=== PATIENT | male | born 1935 | race Caucasian/White ===

== ENCOUNTER 2018-05-17 16:15 | Inpatient (IN) ==
[2018-05-17] MEDS ORDERED: PIPERACILLIN/TAZOBACTAM 3,375 MG in SODIUM CHLORIDE 0.9% 100 ML IV STA ×2 (17:34→18:06)
[2018-05-17] MEDS ORDERED: PIPERACILLIN/TAZOBACTAM 3,375 MG VIAL IV ONE (18:04)
[2018-05-17] MEDS ORDERED: BENZOCAINE/MENTHOL LOZENGE 18/BOX PO PRN (22:22)
[2018-05-17] MEDS: DOCUSATE SODIUM 100 MG CAPSULE PO SCH (22:45)
[2018-05-17] MEDS: ONDANSETRON 4 MG/2 ML VIAL IV PRN (22:56)
[2018-05-17] MEDS: HYDROmorphone 2 MG/1 ML VIAL IV PRN (22:56)
[2018-05-18] MEDS: HYDROmorphone 2 MG/1 ML VIAL IV PRN ×3 (04:55→23:23)
[2018-05-18] MEDS: ONDANSETRON 4 MG/2 ML VIAL IV PRN (04:57)
[2018-05-18] MEDS ORDERED: INDOMETHACIN SUPP 50 MG SUPP RECTAL ONE (07:20)
[2018-05-18] MEDS ORDERED: LACTATED RINGERS 1,000 ML IV SCH (07:30)
[2018-05-18] MEDS ORDERED: MECLIZINE 25 MG TABLET PO PRN (07:44)
[2018-05-18] MEDS ORDERED: GLIMEPIRIDE 2 MG TABLET PO SCH (08:00)
[2018-05-18] MEDS ORDERED: SERTRALINE 50 MG TABLET PO SCH (09:00)
[2018-05-18] MEDS ORDERED: FUROSEMIDE 40 MG TABLET PO SCH (09:00)
[2018-05-18] MEDS ORDERED: INFLUENZA VIRUS VACCINE 0.5 ML SYRINGE IM ONE (09:00)
[2018-05-18 09:47] LABS: Basophils % 0.2 % (0.0-0.8); Hematocrit 34.4 VOL% (42.0-52.0); Hemoglobin 11.4 GM/DL (14.0-18.0); Immature Granulocytes % 0.7 %; Immature Granulocytes Absolute 0.15 #; Lymphocytes # 0.8 10*3/uL (1.4-4.0); Lymphocytes % 3.8 % (21.2-54.2); Mean Corpuscular HGB Conc 33.1 GM/DL (32-36); Mean Corpuscular Hemoglobin 31 PG (27-34); Mean Corpuscular Volume 94.5 FL (87-102); Monocytes # 0.7 10*3/uL (0.11-0.8); Monocytes % 3.6 % (1.7-12.7); Neutrophils # 18.9 10*3/uL (1.4-7.4); Neutrophils % 91.7 % (38.7-73.9); Platelet Count 168 T/CUMM (130-400); Red Blood Count 3.64 MC/CUMM (3.8-5.5); Red Cell Distribution Width 12.7 % (9.3-17.3); White Blood Count 20.6 T/CUMM (4-12)
[2018-05-18 09:57] LABS: INR 1.1; PT Patient Result 11.9 SECS
[2018-05-18 10:16] LABS: Band Neutrophils 6 % (0-10); Hypochromasia 1+; Lymphocytes 3 % (20-55); Platelet Estimate Normal; Segmented Neutrophils 90 % (50-85); Total Cells Counted 100
[2018-05-18 10:23] LABS: Albumin 2.8 G/DL (3.4-5.0); Bilirubin,Total 6.5 MG/DL (0.2-1.0); Calcium 8.5 MG/DL (8.5-10.1); Osmolality,Calculated 270.1 MOS/KG (273-304); Potassium 4.4 MMOL/L (3.5-5.1); Risk Ratio 3.62; Thyroid Stimulating Hormone 0.506 uIU/ml (0.358-3.74); Total Protein 6.4 G/DL (6.4-8.3)
[2018-05-18] MEDS: IPRATROPIUM 500 MCG/2.5 ML NEB RESP TX SCH ×3 (11:09→19:34)
[2018-05-18] MEDS ORDERED: fentaNYL 100 MCG/2 ML VIAL ONE ×2 (12:05→16:37)
[2018-05-18] MEDS ORDERED: MIDAZOLAM 2 MG/2 ML VIAL ONE ×2 (12:05→13:57)
[2018-05-18] MEDS ORDERED: EPINEPHrine 1 MG/ML VIAL ONE (13:26)
[2018-05-18] MEDS ORDERED: PHENYLEPHRINE DRIP 40 MG/250 ML PREMIX IV ONE (14:20)
[2018-05-18] MEDS ORDERED: ceFAZolin 1,000 MG VIAL ONE (14:25)
[2018-05-18] MEDS ORDERED: GLUCAGON 1 MG VIAL ONE (14:45)
[2018-05-18] MEDS ORDERED: PROPOFOL 1,000 MG/100 ML BOTTLE IV SCH (15:15)
[2018-05-18] MEDS ORDERED: ROCURONIUM 100 MG/10 ML VIAL IV ONE (15:19)
[2018-05-18] MEDS ORDERED: SUCCINYLCHOLINE 200 MG/10 ML VIAL ONE ×2 (15:19→20:11)
[2018-05-18] MEDS ORDERED: PHENYLEPHRINE 1 MG/10 ML SYRINGE IV ONE (15:19)
[2018-05-18] MEDS ORDERED: PROPOFOL 200 MG/20 ML VIAL IV ONE (15:19)
[2018-05-18] MEDS ORDERED: LIDOCAINE 100 MG/5 ML SYRINGE ONE (15:19)
[2018-05-18] MEDS ORDERED: PROPOFOL 1,000 MG/100 ML BOTTLE IV ONE (16:42)
[2018-05-18] MEDS: DOCUSATE SODIUM 100 MG CAPSULE PO SCH ×2 (17:11→20:44)
[2018-05-18] MEDS: FLUDROCORTISONE 0.1 MG TABLET PO SCH (17:11)
[2018-05-18] MEDS: PANTOPRAZOLE 40 MG TABLET PO SCH (17:12)
[2018-05-18] MEDS: POTASSIUM CHLORIDE 20 MEQ TABLET PO SCH ×2 (17:12→20:45)
[2018-05-18 17:21] LABS: ABG Base Excess -8.8 MMOL/L (-2.5-2.5); ABG HCO3 18.1 MMOL/L (20-26); ABG Oxygen Saturation 99.5 % (95-100); ABG PCO2 42.7 MM HG (35-48); ABG PH 7.246 (7.35-7.45); ABG PO2 304.4 MM HG (80-95); ABG TCO2 19.4 MMOL/L (23-27)
[2018-05-18] MEDS ORDERED: DEXTROSE 50% 25 GM/50 ML VIAL IV ONE (18:17)
[2018-05-18] MEDS: PHENYLEPHRINE DRIP 40 MG/250 ML PREMIX IV PRN (18:21)
[2018-05-18] MEDS: DEXTROSE 50% 25 GM/50 ML VIAL IV PRN (18:25)
[2018-05-18 18:35] LABS: Amorphous Crystals,Urine Few /HPF (Few); Apearance,Urine Slightly Hazy (Clear); Bacteria,Urine Occasional /HPF (Few); Bilirubin,Urine Small mg/dL (Negative); Blood, Urine Small mg/dL (Negative); Glucose,Urine (UA) Negative (Negative); Hyaline Casts,Urine 4 /LPF (0-3); Ketones,Urine Negative (Negative); Mucus,Urine Occasional /LPF (Occasional); Nitrite,Urine Negative (Negative); Protein,Urine 30 MG/DL; RBC,Urine 2 /HPF (0-4); Renal Epithelial Cells,Urine Occasional /HPF (<1); Squamous Epithelial Cell,Urine Occasional /HPF (0-10); Urine Color Amber (Yellow); Urine Specific Gravity 1.014 (1.001-1.035); WBC,Urine 4 /HPF (0-6)
[2018-05-18] MEDS ORDERED: ETOMIDATE 20 MG/10 ML VIAL IV ONE ×3 (20:11→20:22)
[2018-05-18] MEDS ORDERED: FUROSEMIDE 20 MG/2 ML VIAL IV ONE (20:30)
[2018-05-18] MEDS ORDERED: SODIUM CHLORIDE 0.9% 1,000 ML IV SCH (20:30)
[2018-05-18] MEDS ORDERED: MAGNESIUM SULF RIDER 2 GM in PREMIX 1 EACH IV ONE (20:35)
[2018-05-18] MEDS ORDERED: MAGNESIUM SULF RIDER 2 GM in PREMIX 1 EACH IV PRN (20:36)
[2018-05-18] MEDS: ASPIRIN EC 81 MG TABLET PO SCH (20:44)
[2018-05-18] MEDS ORDERED: SODIUM CHLORIDE 0.9% 250 ML IV ONE (20:47)
[2018-05-18] MEDS ORDERED: FUROSEMIDE 20 MG/2 ML VIAL ONE (20:48)
[2018-05-18] MEDS ORDERED: GLUCAGON 1 MG VIAL IM PRN (20:48)
[2018-05-18] MEDS ORDERED: QUEtiapine 100 MG TABLET PO SCH (21:00)
[2018-05-18] MEDS ORDERED: ZALEPLON 5 MG CAPSULE PO SCH (21:00)
[2018-05-18] MEDS ORDERED: LACTATED RINGERS 1,000 ML IV ONE (21:28)
[2018-05-18 21:48] LABS: Uric Acid 7.7 MG/DL (3.5-7.2)
[2018-05-18] MEDS ORDERED: NOREPINEPHRINE 4 MG/4 ML VIAL IV ONE (21:51)
[2018-05-18] MEDS: NOREPINEPHRINE 8 MG in SODIUM CHLORIDE 0.9% 242 ML IV PRN (21:57)
[2018-05-18 22:12] LABS: Lactic Acid 7.1 MMOL/L (0.4-2.0)
[2018-05-18] MEDS: cefTRIAXone 1,000 MG in SYRINGE 1 EACH IV SCH (22:23)
[2018-05-18] MEDS: ALBUMIN 25% 25 GM in PREMIX 1 EACH IV SCH (22:24)
[2018-05-18] MEDS: METOPROLOL TARTRATE 5 MG/5 ML VIAL IV SCH (22:30)
[2018-05-18] MEDS: metroNIDAZOLE INJ 500 MG in PREMIX 1 EACH IV SCH (22:35)
[2018-05-18] MEDS: PIPERACILLIN/TAZOBACTAM 3,375 MG in SODIUM CHLORIDE 0.9% 100 ML IV SCH (22:42)
[2018-05-18] MEDS: MIDAZOLAM 100 MG in SODIUM CHLORIDE 0.9% 80 ML IV PRN (23:17)
[2018-05-18] MEDS: SODIUM CHLORIDE 0.9% 1,000 ML IV SCH (23:47)
[2018-05-18] MEDS ORDERED: LACTATED RINGERS 500 ML IV ONE (23:59)
[2018-05-19] MEDS: INSULIN REGULAR 100 UNIT/ML SUBCUT SCH ×4 (00:11→19:06)
[2018-05-19 00:53] LABS: ABG Base Excess -7.3 MMOL/L (-2.5-2.5); ABG HCO3 18.5 MMOL/L (20-26); ABG Oxygen Saturation 99.9 % (95-100); ABG PCO2 34.2 MM HG (35-48); ABG PH 7.326 (7.35-7.45); ABG TCO2 16.1 MMOL/L (23-27)
[2018-05-19] MEDS ORDERED: ALBUTEROL/IPRATROPIUM 3 ML NEB RESP TX SCH (01:00)
[2018-05-19] MEDS: METOPROLOL TARTRATE 5 MG/5 ML VIAL IV SCH ×6 (02:29→21:26)
[2018-05-19 04:22] LABS: ABG Base Excess -5.7 MMOL/L (-2.5-2.5); ABG HCO3 19.8 MMOL/L (20-26); ABG Oxygen Saturation 99.8 % (95-100); ABG PCO2 30.8 MM HG (35-48); ABG PH 7.384 (7.35-7.45); ABG TCO2 16.3 MMOL/L (23-27); Allen Test Positive; Pt O2 Delivery Device Ventilator
[2018-05-19] MEDS: ALBUMIN 25% 25 GM in PREMIX 1 EACH IV SCH ×3 (04:37→21:24)
[2018-05-19] MEDS: metroNIDAZOLE INJ 500 MG in PREMIX 1 EACH IV SCH ×3 (04:37→21:24)
[2018-05-19 05:18] LABS: INR 1.6; PT Patient Result 16.8 SECS
[2018-05-19 05:19] LABS: Basophils # 0.1 10*3/uL (0.0-0.2); Basophils % 0.2 % (0.0-0.8); Hematocrit 30.3 VOL% (42.0-52.0); Hemoglobin 9.9 GM/DL (14.0-18.0); Immature Granulocytes Absolute 0.41 #; Lymphocytes # 0.5 10*3/uL (1.4-4.0); Lymphocytes % 2.6 % (21.2-54.2); Mean Corpuscular HGB Conc 32.7 GM/DL (32-36); Mean Corpuscular Hemoglobin 31 PG (27-34); Mean Corpuscular Volume 94.4 FL (87-102); Mean Platelet Volume 10.9 FL (9.6-12.0); Monocytes # 0.6 10*3/uL (0.11-0.8); Monocytes % 2.7 % (1.7-12.7); Neutrophils # 18.8 10*3/uL (1.4-7.4); Neutrophils % 92.5 % (38.7-73.9); Platelet Count 137 T/CUMM (130-400); Red Blood Count 3.21 MC/CUMM (3.8-5.5); Red Cell Distribution Width 13.1 % (9.3-17.3); White Blood Count 20.3 T/CUMM (4-12)
[2018-05-19 05:25] LABS: Albumin 2.7 G/DL (3.4-5.0); Bilirubin,Total 8.3 MG/DL (0.2-1.0); Calcium 7.6 MG/DL (8.5-10.1); Osmolality,Calculated 286.5 MOS/KG (273-304); Potassium 3.6 MMOL/L (3.5-5.1); Total Protein 5.2 G/DL (6.4-8.3)
[2018-05-19] MEDS: NOREPINEPHRINE 8 MG in SODIUM CHLORIDE 0.9% 242 ML IV PRN ×3 (05:45→21:13)
[2018-05-19] MEDS: SODIUM CHLORIDE 0.9% 1,000 ML IV SCH ×2 (06:29→08:42)
[2018-05-19] MEDS: PIPERACILLIN/TAZOBACTAM 3,375 MG in SODIUM CHLORIDE 0.9% 100 ML IV SCH ×3 (06:30→22:41)
[2018-05-19] MEDS: ALBUTEROL/IPRATROPIUM 3 ML NEB RESP TX SCH ×3 (07:00→20:28)
[2018-05-19 07:52] LABS: Band Neutrophils 23 % (0-10); Burr Cells 1+; Lymphocytes 6 % (20-55); Segmented Neutrophils 69 % (50-85); Total Cells Counted 100
[2018-05-19 07:53] LABS: Platelet Estimate Normal
[2018-05-19 08:19] LABS: Lactic Acid 2.7 MMOL/L (0.4-2.0)
[2018-05-19] MEDS: DOCUSATE SODIUM 100 MG CAPSULE PO SCH ×2 (08:43→20:21)
[2018-05-19] MEDS: PANTOPRAZOLE 40 MG TABLET PO SCH (08:43)
[2018-05-19] MEDS ORDERED: FUROSEMIDE 40 MG/4 ML VIAL IV SCH (09:00)
[2018-05-19] MEDS: MIDAZOLAM 100 MG in SODIUM CHLORIDE 0.9% 80 ML IV PRN ×2 (09:15→17:57)
[2018-05-19] MEDS: SODIUM BICARB INJ 50 MEQ in DEXTROSE 5% NACL 0.45% 1,000 ML IV SCH ×2 (11:11→20:18)
[2018-05-19] MEDS: DEXTROSE 50% 25 GM/50 ML VIAL IV PRN (12:15)
[2018-05-19] MEDS ORDERED: NOREPINEPHRINE 4 MG/4 ML VIAL IV ONE ×2 (12:25→16:22)
[2018-05-19] MEDS: PROPOFOL 1,000 MG/100 ML BOTTLE IV SCH (14:05)
[2018-05-19] MEDS: FAT EMULSION 20% 250 ML IV SCH (16:55)
[2018-05-19] MEDS ORDERED: AMINO ACIDS IV SCH (17:00)
[2018-05-19] MEDS ORDERED: DEXTROSE 10% 1,000 ML IV PRN (17:00)
[2018-05-19] MEDS ORDERED: MULTIVITAMIN IV SCH (17:00)
[2018-05-19] MEDS ORDERED: [UNRECOGNIZED DRUG - OTHER] IV SCH (17:00)
[2018-05-19] MEDS ORDERED: ELECTROLYTE IV SCH (17:00)
[2018-05-19] MEDS: SODIUM CHLORIDE 0.65% NASAL SPRAY 45 ML BOTTLE BOTH NARES SCH ×2 (18:00→21:25)
[2018-05-19] MEDS ORDERED: SODIUM CHLORIDE 0.9% 500 ML IV ONE (20:04)
[2018-05-19] MEDS: ASPIRIN EC 81 MG TABLET PO SCH (20:21)
[2018-05-19] MEDS: cefTRIAXone 1,000 MG in SYRINGE 1 EACH IV SCH (21:24)
[2018-05-20] MEDS: PROPOFOL 1,000 MG/100 ML BOTTLE IV SCH ×3 (00:55→20:38)
[2018-05-20] MEDS: ALBUTEROL/IPRATROPIUM 3 ML NEB RESP TX SCH ×4 (01:13→20:44)
[2018-05-20] MEDS: INSULIN REGULAR 100 UNIT/ML SUBCUT SCH ×4 (01:27→18:10)
[2018-05-20] MEDS: METOPROLOL TARTRATE 5 MG/5 ML VIAL IV SCH ×2 (02:06→06:30)
[2018-05-20 04:18] LABS: ABG Base Excess -1.8 MMOL/L (-2.5-2.5); ABG HCO3 22.9 MMOL/L (20-26); ABG Oxygen Saturation 99.6 % (95-100); ABG PCO2 32.6 MM HG (35-48); ABG PH 7.435 (7.35-7.45); ABG TCO2 20.2 MMOL/L (23-27)
[2018-05-20 04:50] LABS: Basophils % 0.3 % (0.0-0.8); Eosinophils # 0.2 10*3/uL (0.0-0.87); Eosinophils % 2.7 % (0.00-10.9); Hematocrit 25.5 VOL% (42.0-52.0); Hemoglobin 8.3 GM/DL (14.0-18.0); Immature Granulocytes % 0.5 %; Immature Granulocytes Absolute 0.03 #; Lymphocytes # 0.3 10*3/uL (1.4-4.0); Lymphocytes % 5.5 % (21.2-54.2); Mean Corpuscular HGB Conc 32.5 GM/DL (32-36); Mean Corpuscular Hemoglobin 30 PG (27-34); Mean Corpuscular Volume 92.7 FL (87-102); Mean Platelet Volume 11.5 FL (9.6-12.0); Monocytes # 0.2 10*3/uL (0.11-0.8); Monocytes % 3.3 % (1.7-12.7); Neutrophils # 5.2 10*3/uL (1.4-7.4); Neutrophils % 87.7 % (38.7-73.9); Platelet Count 81 T/CUMM (130-400); Red Blood Count 2.75 MC/CUMM (3.8-5.5); Red Cell Distribution Width 13.6 % (9.3-17.3)
[2018-05-20] MEDS: SODIUM BICARB INJ 50 MEQ in DEXTROSE 5% NACL 0.45% 1,000 ML IV SCH (04:51)
[2018-05-20 04:55] LABS: Albumin 2.6 G/DL (3.4-5.0); Bilirubin,Total 6.5 MG/DL (0.2-1.0); Calcium 7.7 MG/DL (8.5-10.1); Osmolality,Calculated 298.3 MOS/KG (273-304); Potassium 2.9 MMOL/L (3.5-5.1); Total Protein 5.7 G/DL (6.4-8.3)
[2018-05-20 05:36] LABS: INR 1.4; PT Patient Result 14.3 SECS
[2018-05-20] MEDS: metroNIDAZOLE INJ 500 MG in PREMIX 1 EACH IV SCH ×3 (05:52→21:42)
[2018-05-20] MEDS: ALBUMIN 25% 25 GM in PREMIX 1 EACH IV SCH ×3 (05:56→21:52)
[2018-05-20] MEDS: POTASSIUM CHLORIDE RIDER 20 MEQ in PREMIX 1 EACH IV PRN ×5 (06:31→19:16)
[2018-05-20] MEDS: PIPERACILLIN/TAZOBACTAM 3,375 MG in SODIUM CHLORIDE 0.9% 100 ML IV SCH ×3 (06:44→22:44)
[2018-05-20] MEDS: MIDAZOLAM 100 MG in SODIUM CHLORIDE 0.9% 80 ML IV PRN ×2 (06:58→20:16)
[2018-05-20 07:17] LABS: Band Neutrophils 7 % (0-10); Lymphocytes 8 % (20-55); Platelet Estimate Decreased; Segmented Neutrophils 83 % (50-85); Tear Drop Cells Few; Total Cells Counted 100
[2018-05-20] MEDS: PANTOPRAZOLE 40 MG TABLET PO SCH (08:43)
[2018-05-20] MEDS: DOCUSATE SODIUM 100 MG CAPSULE PO SCH ×2 (08:43→21:15)
[2018-05-20] MEDS: SODIUM CHLORIDE 0.65% NASAL SPRAY 45 ML BOTTLE BOTH NARES SCH ×4 (08:46→21:57)
[2018-05-20] MEDS ORDERED: POTASSIUM CHLORIDE IV SCH (08:57)
[2018-05-20] MEDS ORDERED: SODIUM BICARB IV SCH (08:57)
[2018-05-20] MEDS ORDERED: [UNRECOGNIZED DRUG - OTHER] IV SCH (08:57)
[2018-05-20] MEDS: FAT EMULSION 20% 250 ML IV SCH (14:49)
[2018-05-20] MEDS: ELECTROLYTE IV SCH (16:53)
[2018-05-20] MEDS: AMINO ACIDS IV SCH (16:53)
[2018-05-20] MEDS: MULTIVITAMIN IV SCH (16:53)
[2018-05-20] MEDS: [UNRECOGNIZED DRUG - OTHER] IV SCH (16:53)
[2018-05-20] MEDS: SODIUM BICARB IV SCH (17:03)
[2018-05-20] MEDS: POTASSIUM CHLORIDE IV SCH (17:03)
[2018-05-20] MEDS: [UNRECOGNIZED DRUG - OTHER] IV SCH (17:03)
[2018-05-20] MEDS: ASPIRIN EC 81 MG TABLET PO SCH (18:15)
[2018-05-20] MEDS ORDERED: SODIUM PHOSPHATE ENEMA 133 ML BOTTLE RECTAL PRN (21:25)
[2018-05-20] MEDS: cefTRIAXone 1,000 MG in SYRINGE 1 EACH IV SCH (21:44)
[2018-05-20] MEDS: OXYMETAZOLINE 0.05% NASAL SPRAY 15 ML BOTTLE BOTH NARES PRN (21:56)
[2018-05-20] MEDS: BISACODYL 10 MG SUPP RECTAL PRN (23:03)
[2018-05-21] MEDS: INSULIN REGULAR 100 UNIT/ML SUBCUT SCH ×4 (00:29→18:00)
[2018-05-21] MEDS: POTASSIUM CHLORIDE RIDER 20 MEQ in PREMIX 1 EACH IV PRN ×2 (00:31→05:09)
[2018-05-21] MEDS: [UNRECOGNIZED DRUG - OTHER] IV SCH ×2 (01:20→22:59)
[2018-05-21] MEDS: SODIUM BICARB IV SCH ×2 (01:20→22:59)
[2018-05-21] MEDS: POTASSIUM CHLORIDE IV SCH ×2 (01:20→22:59)
[2018-05-21] MEDS: ALBUTEROL/IPRATROPIUM 3 ML NEB RESP TX SCH ×4 (01:23→19:41)
[2018-05-21 04:27] LABS: Basophils % 0.3 % (0.0-0.8); Eosinophils # 0.1 10*3/uL (0.0-0.87); Hematocrit 23.2 VOL% (42.0-52.0); Hemoglobin 7.4 GM/DL (14.0-18.0); Immature Granulocytes % 1.3 %; Immature Granulocytes Absolute 0.09 #; Lymphocytes # 0.5 10*3/uL (1.4-4.0); Lymphocytes % 7.5 % (21.2-54.2); Mean Corpuscular HGB Conc 31.9 GM/DL (32-36); Mean Corpuscular Hemoglobin 31 PG (27-34); Mean Corpuscular Volume 96.3 FL (87-102); Monocytes # 0.4 10*3/uL (0.11-0.8); Monocytes % 5.6 % (1.7-12.7); Neutrophils # 5.8 10*3/uL (1.4-7.4); Neutrophils % 83.3 % (38.7-73.9); Platelet Count 73 T/CUMM (130-400); Red Blood Count 2.41 MC/CUMM (3.8-5.5); Red Cell Distribution Width 13.6 % (9.3-17.3)
[2018-05-21 04:30] LABS: ABG Base Excess -1.6 MMOL/L (-2.5-2.5); ABG HCO3 23.1 MMOL/L (20-26); ABG Oxygen Saturation 99.7 % (95-100); ABG PCO2 32.9 MM HG (35-48); ABG PH 7.436 (7.35-7.45); ABG TCO2 20.6 MMOL/L (23-27)
[2018-05-21 04:34] LABS: INR 1.1; PT Patient Result 11.4 SECS
[2018-05-21 04:47] LABS: Albumin 3.1 G/DL (3.4-5.0); Calcium 8.8 MG/DL (8.5-10.1); Osmolality,Calculated 293.4 MOS/KG (273-304); Potassium 3.9 MMOL/L (3.5-5.1); Total Protein 6.2 G/DL (6.4-8.3)
[2018-05-21 04:48] LABS: Prealbumin 6.8 MG/DL (20-40)
[2018-05-21] MEDS: ALBUMIN 25% 25 GM in PREMIX 1 EACH IV SCH ×3 (05:06→21:42)
[2018-05-21 05:07] LABS: Band Neutrophils 2 % (0-10); Eosinophils 1 % (0-10); Hypochromasia Slight; Lymphocytes 11 % (20-55); Segmented Neutrophils 80 % (50-85); Total Cells Counted 100
[2018-05-21 05:08] LABS: Microcytosis 1+
[2018-05-21] MEDS: metroNIDAZOLE INJ 500 MG in PREMIX 1 EACH IV SCH ×3 (05:16→21:39)
[2018-05-21] MEDS: PIPERACILLIN/TAZOBACTAM 3,375 MG in SODIUM CHLORIDE 0.9% 100 ML IV SCH ×3 (06:15→22:03)
[2018-05-21] MEDS: DOCUSATE SODIUM 100 MG CAPSULE PO SCH ×2 (08:34→21:38)
[2018-05-21] MEDS: SODIUM CHLORIDE 0.65% NASAL SPRAY 45 ML BOTTLE BOTH NARES SCH ×4 (08:34→22:04)
[2018-05-21] MEDS: PANTOPRAZOLE 40 MG TABLET PO SCH (08:35)
[2018-05-21] MEDS ORDERED: SODIUM CHLORIDE 0.9% 1,000 ML IV PRN (10:53)
[2018-05-21] MEDS ORDERED: INSULIN GLARGINE 100 UNIT/ML SUBCUT SCH (11:00)
[2018-05-21] MEDS: AMINO ACIDS IV SCH (12:53)
[2018-05-21] MEDS: [UNRECOGNIZED DRUG - OTHER] IV SCH (12:53)
[2018-05-21] MEDS: MULTIVITAMIN IV SCH ×2 (12:53→17:56)
[2018-05-21] MEDS: ELECTROLYTE IV SCH ×2 (12:53→17:56)
[2018-05-21] MEDS: PROPOFOL 1,000 MG/100 ML BOTTLE IV SCH (14:28)
[2018-05-21] MEDS: INSULIN REGULAR IV SCH (17:56)
[2018-05-21] MEDS: [UNRECOGNIZED DRUG - OTHER] IV SCH (17:56)
[2018-05-21] MEDS: FAT EMULSION 20% 250 ML IV SCH (17:56)
[2018-05-21] MEDS: ASPIRIN EC 81 MG TABLET PO SCH (18:00)
[2018-05-21 21:24] LABS: Hematocrit 27.7 VOL% (42.0-52.0)
[2018-05-21] MEDS: cefTRIAXone 1,000 MG in SYRINGE 1 EACH IV SCH (21:51)
[2018-05-22] MEDS: INSULIN REGULAR 100 UNIT/ML SUBCUT SCH ×4 (00:09→17:15)
[2018-05-22] MEDS: ALBUTEROL/IPRATROPIUM 3 ML NEB RESP TX SCH ×4 (00:39→19:11)
[2018-05-22] MEDS: ACETAMINOPHEN 325 MG TABLET PO PRN (01:10)
[2018-05-22 04:47] LABS: ABG Base Excess -1.9 MMOL/L (-2.5-2.5); ABG HCO3 22.8 MMOL/L (20-26); ABG Oxygen Saturation 99.6 % (95-100); ABG PH 7.403 (7.35-7.45); ABG TCO2 20.6 MMOL/L (23-27)
[2018-05-22 05:04] LABS: Basophils % 0.3 % (0.0-0.8); Eosinophils # 0.2 10*3/uL (0.0-0.87); Eosinophils % 2.1 % (0.00-10.9); Hematocrit 28.2 VOL% (42.0-52.0); Hemoglobin 9.1 GM/DL (14.0-18.0); Immature Granulocytes % 1.8 %; Immature Granulocytes Absolute 0.13 #; Lymphocytes # 0.7 10*3/uL (1.4-4.0); Lymphocytes % 9.6 % (21.2-54.2); Mean Corpuscular HGB Conc 32.3 GM/DL (32-36); Mean Corpuscular Hemoglobin 30 PG (27-34); Mean Corpuscular Volume 92.2 FL (87-102); Mean Platelet Volume 10.9 FL (9.6-12.0); Monocytes # 0.5 10*3/uL (0.11-0.8); Monocytes % 7.6 % (1.7-12.7); Neutrophils # 5.6 10*3/uL (1.4-7.4); Neutrophils % 78.6 % (38.7-73.9); Platelet Count 68 T/CUMM (130-400); Red Blood Count 3.06 MC/CUMM (3.8-5.5); Red Cell Distribution Width 15.1 % (9.3-17.3); White Blood Count 7.1 T/CUMM (4-12)
[2018-05-22 05:29] LABS: Albumin 3.1 G/DL (3.4-5.0); Bilirubin,Total 6.1 MG/DL (0.2-1.0); Calcium 8.4 MG/DL (8.5-10.1); Osmolality,Calculated 293.3 MOS/KG (273-304); Potassium 3.8 MMOL/L (3.5-5.1); Total Protein 6.2 G/DL (6.4-8.3)
[2018-05-22 05:30] LABS: Band Neutrophils 1 % (0-10); Eosinophils 2 % (0-10); Hypochromasia 1+; Lymphocytes 11 % (20-55); Microcytosis 1+; Ovalocytes Slight; Segmented Neutrophils 76 % (50-85); Total Cells Counted 100
[2018-05-22 05:31] LABS: Platelet Estimate Decreased
[2018-05-22] MEDS: ALBUMIN 25% 25 GM in PREMIX 1 EACH IV SCH ×3 (05:57→21:03)
[2018-05-22] MEDS: metroNIDAZOLE INJ 500 MG in PREMIX 1 EACH IV SCH ×3 (05:57→21:23)
[2018-05-22] MEDS: POTASSIUM CHLORIDE RIDER 20 MEQ in PREMIX 1 EACH IV PRN (05:58)
[2018-05-22] MEDS: PIPERACILLIN/TAZOBACTAM 3,375 MG in SODIUM CHLORIDE 0.9% 100 ML IV SCH (05:58)
[2018-05-22] MEDS ORDERED: INSULIN GLARGINE 100 UNIT/ML SUBCUT SCH (09:00)
[2018-05-22] MEDS ORDERED: cloNIDine 0.1 MG/24 HR PATCH TRANSDERM SCH (09:00)
[2018-05-22] MEDS: FAMOTIDINE 20 MG/2 ML VIAL IV SCH (10:02)
[2018-05-22] MEDS: DOCUSATE SODIUM 100 MG CAPSULE PO SCH ×2 (10:03→21:02)
[2018-05-22] MEDS: SODIUM CHLORIDE 0.65% NASAL SPRAY 45 ML BOTTLE BOTH NARES SCH ×4 (10:03→21:07)
[2018-05-22] MEDS ORDERED: cefTAZidime 500 MG in SYRINGE 1 EACH IV SCH (12:30)
[2018-05-22] MEDS: INSULIN REGULAR IV SCH (12:56)
[2018-05-22] MEDS: MULTIVITAMIN IV SCH (12:56)
[2018-05-22] MEDS: ELECTROLYTE IV SCH (12:56)
[2018-05-22] MEDS: [UNRECOGNIZED DRUG - OTHER] IV SCH (12:56)
[2018-05-22] MEDS: MEROPENEM 500 MG in SODIUM CHLORIDE 0.9% 100 ML IV SCH ×2 (13:15→21:02)
[2018-05-22] MEDS: PROPOFOL 1,000 MG/100 ML BOTTLE IV SCH (13:24)
[2018-05-22] MEDS: cefTAZidime 500 MG in SYRINGE 1 EACH IV SCH ×2 (13:52→21:02)
[2018-05-22] MEDS: FAT EMULSION 20% 250 ML IV SCH (17:36)
[2018-05-22] MEDS: hydrALAZINE 20 MG/1 ML VIAL IV PRN ×2 (17:37→22:46)
[2018-05-22] MEDS: ASPIRIN EC 81 MG TABLET PO SCH (21:02)
[2018-05-22] MEDS: OXYMETAZOLINE 0.05% NASAL SPRAY 15 ML BOTTLE BOTH NARES PRN (21:07)
[2018-05-22] MEDS: SODIUM BICARB IV SCH (21:27)
[2018-05-22] MEDS: [UNRECOGNIZED DRUG - OTHER] IV SCH (21:27)
[2018-05-22] MEDS: POTASSIUM CHLORIDE IV SCH (21:27)
[2018-05-23] MEDS: INSULIN REGULAR 100 UNIT/ML SUBCUT SCH ×4 (00:28→17:26)
[2018-05-23] MEDS: ALBUTEROL/IPRATROPIUM 3 ML NEB RESP TX SCH ×4 (01:55→19:19)
[2018-05-23] MEDS: SODIUM BICARB IV SCH (03:21)
[2018-05-23] MEDS: [UNRECOGNIZED DRUG - OTHER] IV SCH (03:21)
[2018-05-23] MEDS: POTASSIUM CHLORIDE IV SCH (03:21)
[2018-05-23] MEDS: cefTAZidime 500 MG in SYRINGE 1 EACH IV SCH ×3 (04:25→21:37)
[2018-05-23] MEDS: ALBUMIN 25% 25 GM in PREMIX 1 EACH IV SCH ×3 (04:26→21:37)
[2018-05-23] MEDS: metroNIDAZOLE INJ 500 MG in PREMIX 1 EACH IV SCH ×3 (04:35→21:37)
[2018-05-23] MEDS: MEROPENEM 500 MG in SODIUM CHLORIDE 0.9% 100 ML IV SCH ×3 (04:37→21:36)
[2018-05-23 05:42] LABS: Basophils % 0.4 % (0.0-0.8); Eosinophils # 0.1 10*3/uL (0.0-0.87); Eosinophils % 0.5 % (0.00-10.9); Hematocrit 28.5 VOL% (42.0-52.0); Hemoglobin 9.1 GM/DL (14.0-18.0); Immature Granulocytes % 3.4 %; Immature Granulocytes Absolute 0.33 #; Lymphocytes # 0.7 10*3/uL (1.4-4.0); Mean Corpuscular HGB Conc 31.9 GM/DL (32-36); Mean Corpuscular Hemoglobin 30 PG (27-34); Mean Corpuscular Volume 92.8 FL (87-102); Mean Platelet Volume 11.8 FL (9.6-12.0); Monocytes # 0.8 10*3/uL (0.11-0.8); Monocytes % 8.6 % (1.7-12.7); Neutrophils # 7.9 10*3/uL (1.4-7.4); Neutrophils % 80.1 % (38.7-73.9); Platelet Count 64 T/CUMM (130-400); Red Blood Count 3.07 MC/CUMM (3.8-5.5); Red Cell Distribution Width 15.2 % (9.3-17.3); White Blood Count 9.8 T/CUMM (4-12)
[2018-05-23 05:56] LABS: Albumin 3.3 G/DL (3.4-5.0); Bilirubin,Total 5.3 MG/DL (0.2-1.0); Calcium 8.8 MG/DL (8.5-10.1); Potassium 3.9 MMOL/L (3.5-5.1); Total Protein 6.5 G/DL (6.4-8.3)
[2018-05-23 06:16] LABS: Band Neutrophils 2 % (0-10); Hypochromasia Slight; Lymphocytes 6 % (20-55); Metamyelocytes 1 %; Microcytosis 1+; Segmented Neutrophils 84 % (50-85); Total Cells Counted 100
[2018-05-23 06:17] LABS: Ovalocytes Slight; Platelet Estimate Decreased; Target Cells Slight
[2018-05-23] MEDS ORDERED: INSULIN GLARGINE 100 UNIT/ML SUBCUT SCH ×3 (06:32→22:22)
[2018-05-23] MEDS: POTASSIUM CHLORIDE RIDER 20 MEQ in PREMIX 1 EACH IV PRN (06:42)
[2018-05-23] MEDS ORDERED: LABETALOL 100 MG/20 ML VIAL IV PRN (07:39)
[2018-05-23] MEDS ORDERED: LABETALOL 20 MG/4 ML SYRINGE IV PRN (07:41)
[2018-05-23] MEDS: INSULIN REGULAR IV SCH (08:51)
[2018-05-23] MEDS: [UNRECOGNIZED DRUG - OTHER] IV SCH (08:51)
[2018-05-23] MEDS: MULTIVITAMIN IV SCH (08:51)
[2018-05-23] MEDS: FAMOTIDINE 20 MG/2 ML VIAL IV SCH (08:51)
[2018-05-23] MEDS: ELECTROLYTE IV SCH (08:51)
[2018-05-23] MEDS: DOCUSATE SODIUM 100 MG CAPSULE PO SCH ×2 (08:52→21:37)
[2018-05-23] MEDS: SODIUM CHLORIDE 0.65% NASAL SPRAY 45 ML BOTTLE BOTH NARES SCH ×4 (11:13→21:37)
[2018-05-23] MEDS: PROPOFOL 1,000 MG/100 ML BOTTLE IV SCH (13:47)
[2018-05-23] MEDS: FAT EMULSION 20% 250 ML IV SCH (15:44)
[2018-05-23] MEDS: ASPIRIN EC 81 MG TABLET PO SCH (18:29)
[2018-05-23] MEDS: hydrALAZINE 20 MG/1 ML VIAL IV PRN (21:51)
[2018-05-23] MEDS: ACETAMINOPHEN 325 MG TABLET PO PRN (22:49)
[2018-05-24] MEDS: ALBUTEROL/IPRATROPIUM 3 ML NEB RESP TX SCH ×4 (00:02→19:32)
[2018-05-24] MEDS: INSULIN REGULAR 100 UNIT/ML SUBCUT SCH ×4 (00:19→19:02)
[2018-05-24] MEDS: MIDAZOLAM 100 MG in SODIUM CHLORIDE 0.9% 80 ML IV PRN (02:32)
[2018-05-24] MEDS: ELECTROLYTE IV SCH (03:16)
[2018-05-24] MEDS: INSULIN REGULAR IV SCH (03:16)
[2018-05-24] MEDS: MULTIVITAMIN IV SCH (03:16)
[2018-05-24] MEDS: [UNRECOGNIZED DRUG - OTHER] IV SCH (03:16)
[2018-05-24] MEDS: MEROPENEM 500 MG in SODIUM CHLORIDE 0.9% 100 ML IV SCH ×2 (05:03→11:33)
[2018-05-24] MEDS: metroNIDAZOLE INJ 500 MG in PREMIX 1 EACH IV SCH ×2 (05:03→14:47)
[2018-05-24] MEDS: cefTAZidime 500 MG in SYRINGE 1 EACH IV SCH ×2 (05:03→11:34)
[2018-05-24] MEDS: ALBUMIN 25% 25 GM in PREMIX 1 EACH IV SCH ×3 (05:03→20:34)
[2018-05-24 05:15] LABS: ABG Base Excess -1.1 MMOL/L (-2.5-2.5); ABG HCO3 23.5 MMOL/L (20-26); ABG Oxygen Saturation 99.3 % (95-100); ABG PCO2 39.5 MM HG (35-48); ABG PH 7.387 (7.35-7.45)
[2018-05-24 05:25] LABS: Basophils % 0.1 % (0.0-0.8); Eosinophils # 0.1 10*3/uL (0.0-0.87); Eosinophils % 1.5 % (0.00-10.9); Hematocrit 26.5 VOL% (42.0-52.0); Hemoglobin 8.3 GM/DL (14.0-18.0); Immature Granulocytes % 2.9 %; Immature Granulocytes Absolute 0.26 #; Lymphocytes # 0.8 10*3/uL (1.4-4.0); Lymphocytes % 8.6 % (21.2-54.2); Mean Corpuscular HGB Conc 31.3 GM/DL (32-36); Mean Corpuscular Hemoglobin 29 PG (27-34); Mean Corpuscular Volume 93.3 FL (87-102); Mean Platelet Volume 12.5 FL (9.6-12.0); Monocytes # 0.8 10*3/uL (0.11-0.8); Monocytes % 8.9 % (1.7-12.7); Neutrophils # 7.1 10*3/uL (1.4-7.4); Platelet Count 52 T/CUMM (130-400); Red Blood Count 2.84 MC/CUMM (3.8-5.5); Red Cell Distribution Width 15.2 % (9.3-17.3); White Blood Count 9.1 T/CUMM (4-12)
[2018-05-24 05:50] LABS: Hypochromasia 1+; Platelet Estimate Decreased
[2018-05-24 05:51] LABS: Microcytosis Slight
[2018-05-24 06:32] LABS: Albumin 3.3 G/DL (3.4-5.0); Bilirubin,Total 4.1 MG/DL (0.2-1.0); Calcium 9.3 MG/DL (8.5-10.1); Osmolality,Calculated 311.6 MOS/KG (273-304); Potassium 3.9 MMOL/L (3.5-5.1); Total Protein 6.4 G/DL (6.4-8.3)
[2018-05-24] MEDS: SODIUM BICARB IV SCH (09:19)
[2018-05-24] MEDS: POTASSIUM CHLORIDE IV SCH (09:19)
[2018-05-24] MEDS: [UNRECOGNIZED DRUG - OTHER] IV SCH (09:19)
[2018-05-24] MEDS ORDERED: POTASSIUM CHLORIDE IV SCH (09:30)
[2018-05-24] MEDS ORDERED: SODIUM BICARB IV SCH (09:30)
[2018-05-24] MEDS ORDERED: DEXTROSE 5% IV SCH (09:30)
[2018-05-24] MEDS: DOCUSATE SODIUM 100 MG CAPSULE PO SCH ×2 (09:49→20:32)
[2018-05-24] MEDS: FAMOTIDINE 20 MG/2 ML VIAL IV SCH (09:50)
[2018-05-24] MEDS: SODIUM CHLORIDE 0.65% NASAL SPRAY 45 ML BOTTLE BOTH NARES SCH ×4 (09:50→20:33)
[2018-05-24] MEDS: BISACODYL 10 MG SUPP RECTAL PRN (11:33)
[2018-05-24] MEDS: PROPOFOL 1,000 MG/100 ML BOTTLE IV SCH (14:15)
[2018-05-24] MEDS: FAT EMULSION 20% 250 ML IV SCH (14:17)
[2018-05-24] MEDS: MEROPENEM 1,000 MG in SODIUM CHLORIDE 0.9% 100 ML IV SCH ×2 (14:49→22:08)
[2018-05-24] MEDS ORDERED: INFLUENZA VIRUS VACCINE 0.5 ML SYRINGE IM ONE (16:00)
[2018-05-24] MEDS: MICAFUNGIN 100 MG in SODIUM CHLORIDE 0.9% 100 ML IV SCH (16:16)
[2018-05-24] MEDS: DILTIAZEM INJ 100 MG in SODIUM CHLORIDE 0.9% 100 ML IV SCH (17:56)
[2018-05-24] MEDS ORDERED: DILTIAZEM 50 MG/10 ML VIAL IV ONE (18:05)
[2018-05-24] MEDS ORDERED: DILTIAZEM 25 MG/5 ML VIAL IV ONE (18:30)
[2018-05-24] MEDS: PHENYLEPHRINE DRIP 40 MG/250 ML PREMIX IV PRN (18:40)
[2018-05-24] MEDS ORDERED: NOREPINEPHRINE 4 MG/4 ML VIAL IV ONE (18:55)
[2018-05-24] MEDS ORDERED: NOREPINEPHRINE 16 MG in SODIUM CHLORIDE 0.9% 234 ML IV PRN (18:57)
[2018-05-24] MEDS: ASPIRIN EC 81 MG TABLET PO SCH (20:31)
[2018-05-24] MEDS: ASPIRIN CHEW 81 MG TABLET PO SCH (20:35)
[2018-05-24] MEDS ORDERED: METOPROLOL TARTRATE 5 MG/5 ML VIAL IV ONE (20:38)
[2018-05-24] MEDS ORDERED: METOPROLOL TARTRATE 5 MG/5 ML VIAL IV PRN (21:00)
[2018-05-25] MEDS: INSULIN REGULAR 100 UNIT/ML SUBCUT SCH ×4 (00:50→18:14)
[2018-05-25] MEDS: DILTIAZEM INJ 100 MG in SODIUM CHLORIDE 0.9% 100 ML IV SCH ×3 (01:18→18:15)
[2018-05-25] MEDS: ALBUTEROL/IPRATROPIUM 3 ML NEB RESP TX SCH ×4 (01:22→18:47)
[2018-05-25 05:06] LABS: ABG Base Excess -0.3 MMOL/L (-2.5-2.5); ABG HCO3 24.2 MMOL/L (20-26); ABG Oxygen Saturation 99.4 % (95-100); ABG PCO2 38.8 MM HG (35-48); ABG PH 7.405 (7.35-7.45); ABG TCO2 22.5 MMOL/L (23-27)
[2018-05-25 05:12] LABS: Basophils % 0.4 % (0.0-0.8); Eosinophils # 0.2 10*3/uL (0.0-0.87); Eosinophils % 1.7 % (0.00-10.9); Hematocrit 26.5 VOL% (42.0-52.0); Hemoglobin 8.1 GM/DL (14.0-18.0); Immature Granulocytes % 1.6 %; Immature Granulocytes Absolute 0.18 #; Lymphocytes # 1.1 10*3/uL (1.4-4.0); Mean Corpuscular HGB Conc 30.6 GM/DL (32-36); Mean Corpuscular Hemoglobin 29 PG (27-34); Mean Corpuscular Volume 94.6 FL (87-102); Mean Platelet Volume 14.2 FL (9.6-12.0); Monocytes % 8.7 % (1.7-12.7); Neutrophils # 8.6 10*3/uL (1.4-7.4); Neutrophils % 77.6 % (38.7-73.9); Platelet Count 72 T/CUMM (130-400); Red Cell Distribution Width 15.2 % (9.3-17.3); White Blood Count 11.1 T/CUMM (4-12)
[2018-05-25] MEDS ORDERED: SODIUM CHLORIDE 0.45% 1,000 ML IV SCH (05:30)
[2018-05-25 05:31] LABS: Platelet Estimate Decreased
[2018-05-25 05:32] LABS: Anisocytosis Slight; Giant Platelets Few; Hypochromasia 1+; Target Cells Few
[2018-05-25 05:33] LABS: Macrocytosis Slight
[2018-05-25 06:29] LABS: Calcium 9.3 MG/DL (8.5-10.1); Osmolality,Calculated 314.1 MOS/KG (273-304); Potassium 4.5 MMOL/L (3.5-5.1)
[2018-05-25] MEDS: ALBUMIN 25% 25 GM in PREMIX 1 EACH IV SCH ×3 (06:37→20:49)
[2018-05-25] MEDS: MEROPENEM 1,000 MG in SODIUM CHLORIDE 0.9% 100 ML IV SCH ×3 (06:37→21:00)
[2018-05-25] MEDS: INSULIN GLARGINE 100 UNIT/ML SUBCUT SCH (08:19)
[2018-05-25] MEDS: DOCUSATE SODIUM 100 MG CAPSULE PO SCH ×2 (08:21→20:50)
[2018-05-25] MEDS: FAMOTIDINE 20 MG/2 ML VIAL IV SCH (08:21)
[2018-05-25] MEDS: DILTIAZEM 90 MG TABLET PO SCH ×4 (08:31→20:50)
[2018-05-25] MEDS: METOPROLOL TARTRATE 25 MG TABLET PO SCH ×2 (08:31→20:50)
[2018-05-25] MEDS: SODIUM CHLORIDE 0.65% NASAL SPRAY 45 ML BOTTLE BOTH NARES SCH ×4 (08:32→20:51)
[2018-05-25] MEDS ORDERED: SODIUM CHLORIDE 0.9% 1,000 ML IV SCH (09:20)
[2018-05-25] MEDS ORDERED: VANCOMYCIN INJ 1,750 MG in SODIUM CHLORIDE 0.9% 500 ML IV SCH (12:00)
[2018-05-25] MEDS: PROPOFOL 1,000 MG/100 ML BOTTLE IV SCH ×2 (12:15→14:04)
[2018-05-25] MEDS: ASCORBIC ACID 500 MG TABLET PO SCH ×2 (12:19→20:50)
[2018-05-25 14:26] LABS: Basophils % 0.2 % (0.0-0.8); Eosinophils # 0.2 10*3/uL (0.0-0.87); Eosinophils % 1.8 % (0.00-10.9); Hematocrit 24.9 VOL% (42.0-52.0); Hemoglobin 7.8 GM/DL (14.0-18.0); Immature Granulocytes % 1.4 %; Immature Granulocytes Absolute 0.19 #; Lymphocytes # 1.3 10*3/uL (1.4-4.0); Lymphocytes % 9.7 % (21.2-54.2); Mean Corpuscular HGB Conc 31.3 GM/DL (32-36); Mean Corpuscular Hemoglobin 30 PG (27-34); Mean Corpuscular Volume 95.8 FL (87-102); Mean Platelet Volume 14.5 FL (9.6-12.0); Monocytes % 7.7 % (1.7-12.7); Neutrophils # 10.5 10*3/uL (1.4-7.4); Neutrophils % 79.2 % (38.7-73.9); Platelet Count 71 T/CUMM (130-400); Red Cell Distribution Width 15.2 % (9.3-17.3); White Blood Count 13.3 T/CUMM (4-12)
[2018-05-25 14:50] LABS: Platelet Estimate Decreased
[2018-05-25 14:55] LABS: Anisocytosis 1+; Hypochromasia Slight
[2018-05-25] MEDS: VANCOMYCIN INJ 1,750 MG in SODIUM CHLORIDE 0.9% 500 ML IV SCH (15:46)
[2018-05-25] MEDS: MICAFUNGIN 100 MG in SODIUM CHLORIDE 0.9% 100 ML IV SCH (15:59)
[2018-05-25 16:17] LABS: Basophils % 0.2 % (0.0-0.8); Eosinophils # 0.3 10*3/uL (0.0-0.87); Eosinophils % 1.9 % (0.00-10.9); Hematocrit 23.4 VOL% (42.0-52.0); Hemoglobin 7.3 GM/DL (14.0-18.0); Immature Granulocytes % 1.5 %; Lymphocytes # 1.6 10*3/uL (1.4-4.0); Lymphocytes % 12.3 % (21.2-54.2); Mean Corpuscular HGB Conc 31.2 GM/DL (32-36); Mean Corpuscular Hemoglobin 30 PG (27-34); Mean Corpuscular Volume 95.1 FL (87-102); Mean Platelet Volume 13.5 FL (9.6-12.0); Monocytes % 7.3 % (1.7-12.7); Neutrophils % 76.8 % (38.7-73.9); Platelet Count 70 T/CUMM (130-400); Red Blood Count 2.46 MC/CUMM (3.8-5.5); Red Cell Distribution Width 15.2 % (9.3-17.3); White Blood Count 13.1 T/CUMM (4-12)
[2018-05-25 16:42] LABS: Band Neutrophils 9 % (0-10); Lymphocytes 17 % (20-55); Platelet Estimate Decreased; Segmented Neutrophils 70 % (50-85); Total Cells Counted 100
[2018-05-25 16:43] LABS: Anisocytosis 1+; Macrocytosis 1+
[2018-05-25] MEDS: ACETAMINOPHEN 325 MG TABLET PO PRN (18:13)
[2018-05-25] MEDS: ASPIRIN CHEW 81 MG TABLET PO SCH (18:26)
[2018-05-25] MEDS: MIDAZOLAM 100 MG in SODIUM CHLORIDE 0.9% 80 ML IV PRN (18:38)
[2018-05-25] MEDS: DEXTROSE 5% 1,000 ML IV SCH (19:44)
[2018-05-26] MEDS: ALBUTEROL/IPRATROPIUM 3 ML NEB RESP TX SCH ×4 (00:32→19:13)
[2018-05-26] MEDS: INSULIN REGULAR 100 UNIT/ML SUBCUT SCH ×4 (00:34→18:04)
[2018-05-26 04:53] LABS: ABG Base Excess -3.5 MMOL/L (-2.5-2.5); ABG HCO3 21.5 MMOL/L (20-26); ABG Oxygen Saturation 98.4 % (95-100); ABG PCO2 34.8 MM HG (35-48); ABG PH 7.387 (7.35-7.45); ABG TCO2 19.3 MMOL/L (23-27)
[2018-05-26 04:59] LABS: Basophils % 0.2 % (0.0-0.8); Eosinophils # 0.3 10*3/uL (0.0-0.87); Eosinophils % 2.5 % (0.00-10.9); Hematocrit 28.9 VOL% (42.0-52.0); Immature Granulocytes % 1.2 %; Immature Granulocytes Absolute 0.15 #; Lymphocytes # 1.2 10*3/uL (1.4-4.0); Lymphocytes % 9.9 % (21.2-54.2); Mean Corpuscular HGB Conc 31.1 GM/DL (32-36); Mean Corpuscular Hemoglobin 28 PG (27-34); Mean Corpuscular Volume 91.2 FL (87-102); Monocytes # 0.9 10*3/uL (0.11-0.8); Monocytes % 7.3 % (1.7-12.7); Neutrophils # 9.7 10*3/uL (1.4-7.4); Neutrophils % 78.9 % (38.7-73.9); Red Blood Count 3.17 MC/CUMM (3.8-5.5); Red Cell Distribution Width 16.2 % (9.3-17.3); White Blood Count 12.3 T/CUMM (4-12)
[2018-05-26 05:03] LABS: Platelet Count 67 T/CUMM (130-400)
[2018-05-26 05:15] LABS: Calcium 8.9 MG/DL (8.5-10.1); Osmolality,Calculated 318.4 MOS/KG (273-304); Potassium 4.5 MMOL/L (3.5-5.1)
[2018-05-26 05:17] LABS: Albumin 3.5 G/DL (3.4-5.0); Bilirubin,Direct 2.08 MG/DL (0.0-0.20); Bilirubin,Indirect 1.5 MG/DL (0.0-1.0); Bilirubin,Total 3.6 MG/DL (0.2-1.0); Total Protein 6.4 G/DL (6.4-8.3)
[2018-05-26] MEDS: MEROPENEM 1,000 MG in SODIUM CHLORIDE 0.9% 100 ML IV SCH ×3 (05:31→21:18)
[2018-05-26] MEDS: ALBUMIN 25% 25 GM in PREMIX 1 EACH IV SCH ×3 (05:31→20:06)
[2018-05-26 05:37] LABS: Hypochromasia 1+; Ovalocytes Slight; Platelet Estimate Decreased
[2018-05-26] MEDS: MIDAZOLAM 100 MG in SODIUM CHLORIDE 0.9% 80 ML IV PRN ×2 (08:45→19:08)
[2018-05-26] MEDS: ASCORBIC ACID 500 MG TABLET PO SCH ×2 (09:27→20:05)
[2018-05-26] MEDS: VANCOMYCIN INJ 1,750 MG in SODIUM CHLORIDE 0.9% 500 ML IV SCH (09:27)
[2018-05-26] MEDS: DEXTROSE 5% 1,000 ML IV SCH ×2 (09:28→21:40)
[2018-05-26] MEDS: DOCUSATE SODIUM 100 MG CAPSULE PO SCH ×2 (09:28→20:05)
[2018-05-26] MEDS: METOPROLOL TARTRATE 25 MG TABLET PO SCH ×2 (09:28→20:06)
[2018-05-26] MEDS: DILTIAZEM 90 MG TABLET PO SCH ×4 (09:29→20:06)
[2018-05-26] MEDS: INSULIN GLARGINE 100 UNIT/ML SUBCUT SCH (09:29)
[2018-05-26] MEDS: SODIUM CHLORIDE 0.65% NASAL SPRAY 45 ML BOTTLE BOTH NARES SCH ×4 (09:30→21:19)
[2018-05-26] MEDS: FAMOTIDINE 20 MG/2 ML VIAL IV SCH (12:18)
[2018-05-26] MEDS: PROPOFOL 1,000 MG/100 ML BOTTLE IV SCH (15:00)
[2018-05-26] MEDS: MICAFUNGIN 100 MG in SODIUM CHLORIDE 0.9% 100 ML IV SCH (15:40)
[2018-05-26] MEDS: DILTIAZEM INJ 100 MG in SODIUM CHLORIDE 0.9% 100 ML IV SCH (18:00)
[2018-05-26] MEDS: ASPIRIN CHEW 81 MG TABLET PO SCH (18:25)
[2018-05-27] MEDS: DEXTROSE 5% 1,000 ML IV SCH ×4 (00:08→23:45)
[2018-05-27] MEDS: ALBUTEROL/IPRATROPIUM 3 ML NEB RESP TX SCH ×4 (01:05→19:05)
[2018-05-27] MEDS: INSULIN REGULAR 100 UNIT/ML SUBCUT SCH ×4 (02:51→18:30)
[2018-05-27] MEDS: VANCOMYCIN INJ 1,750 MG in SODIUM CHLORIDE 0.9% 500 ML IV SCH ×2 (02:56→20:44)
[2018-05-27 05:07] LABS: Basophils % 0.2 % (0.0-0.8); Eosinophils # 0.4 10*3/uL (0.0-0.87); Eosinophils % 2.9 % (0.00-10.9); Hematocrit 27.2 VOL% (42.0-52.0); Hemoglobin 8.8 GM/DL (14.0-18.0); Immature Granulocytes % 1.6 %; Immature Granulocytes Absolute 0.22 #; Lymphocytes % 6.9 % (21.2-54.2); Mean Corpuscular HGB Conc 32.4 GM/DL (32-36); Mean Corpuscular Hemoglobin 30 PG (27-34); Mean Corpuscular Volume 91.6 FL (87-102); Mean Platelet Volume 14.3 FL (9.6-12.0); Monocytes # 0.8 10*3/uL (0.11-0.8); Monocytes % 5.5 % (1.7-12.7); Neutrophils # 11.5 10*3/uL (1.4-7.4); Neutrophils % 82.9 % (38.7-73.9); Platelet Count 81 T/CUMM (130-400); Red Blood Count 2.97 MC/CUMM (3.8-5.5); Red Cell Distribution Width 16.2 % (9.3-17.3); White Blood Count 13.9 T/CUMM (4-12)
[2018-05-27 05:08] LABS: ABG Base Excess -3.6 MMOL/L (-2.5-2.5); ABG PCO2 30.4 MM HG (35-48); ABG PH 7.435 (7.35-7.45); ABG PO2 69.5 MM HG (80-95); ABG TCO2 20.9 MMOL/L (23-27)
[2018-05-27 05:25] LABS: Calcium 8.4 MG/DL (8.5-10.1); Osmolality,Calculated 314.1 MOS/KG (273-304); Potassium 4.2 MMOL/L (3.5-5.1)
[2018-05-27] MEDS: ALBUMIN 25% 25 GM in PREMIX 1 EACH IV SCH ×3 (05:35→20:44)
[2018-05-27 05:40] LABS: Band Neutrophils 1 % (0-10); Eosinophils 2 % (0-10); Hypochromasia 1+; Lymphocytes 6 % (20-55); Ovalocytes Slight; Platelet Estimate Decreased; Segmented Neutrophils 85 % (50-85); Total Cells Counted 100
[2018-05-27 05:41] LABS: Macrocytosis Slight; Polychromasia Slight
[2018-05-27] MEDS: MEROPENEM 1,000 MG in SODIUM CHLORIDE 0.9% 100 ML IV SCH ×3 (06:39→21:28)
[2018-05-27] MEDS: ASCORBIC ACID 500 MG TABLET PO SCH ×2 (09:35→20:43)
[2018-05-27] MEDS: DOCUSATE SODIUM 100 MG CAPSULE PO SCH ×2 (09:35→20:43)
[2018-05-27] MEDS: DILTIAZEM 90 MG TABLET PO SCH ×4 (09:35→20:44)
[2018-05-27] MEDS: INSULIN GLARGINE 100 UNIT/ML SUBCUT SCH (09:36)
[2018-05-27] MEDS: METOPROLOL TARTRATE 25 MG TABLET PO SCH ×2 (09:36→20:43)
[2018-05-27] MEDS: SODIUM CHLORIDE 0.65% NASAL SPRAY 45 ML BOTTLE BOTH NARES SCH ×4 (09:37→21:28)
[2018-05-27] MEDS: FAMOTIDINE 20 MG/2 ML VIAL IV SCH (09:37)
[2018-05-27] MEDS: PROPOFOL 1,000 MG/100 ML BOTTLE IV SCH ×3 (13:42→23:38)
[2018-05-27] MEDS: MICAFUNGIN 100 MG in SODIUM CHLORIDE 0.9% 100 ML IV SCH (15:34)
[2018-05-27] MEDS: DILTIAZEM INJ 100 MG in SODIUM CHLORIDE 0.9% 100 ML IV SCH (17:52)
[2018-05-27] MEDS: ASPIRIN CHEW 81 MG TABLET PO SCH (20:43)
[2018-05-28] MEDS: INSULIN REGULAR 100 UNIT/ML SUBCUT SCH ×4 (00:57→17:34)
[2018-05-28] MEDS: ALBUTEROL/IPRATROPIUM 3 ML NEB RESP TX SCH ×4 (01:16→19:20)
[2018-05-28] MEDS: PHENYLEPHRINE DRIP 40 MG/250 ML PREMIX IV PRN (01:17)
[2018-05-28 03:13] LABS: ABG Base Excess -3.8 MMOL/L (-2.5-2.5); ABG HCO3 21.2 MMOL/L (20-26); ABG Oxygen Saturation 95.9 % (95-100); ABG PH 7.333 (7.35-7.45); ABG TCO2 20.4 MMOL/L (23-27); Allen Test Positive; Pt O2 Delivery Device Ventilator
[2018-05-28] MEDS: PROPOFOL 1,000 MG/100 ML BOTTLE IV SCH ×5 (03:15→20:42)
[2018-05-28 05:00] LABS: Basophils % 0.2 % (0.0-0.8); Eosinophils # 0.4 10*3/uL (0.0-0.87); Eosinophils % 4.1 % (0.00-10.9); Hematocrit 24.9 VOL% (42.0-52.0); Hemoglobin 7.8 GM/DL (14.0-18.0); Immature Granulocytes % 1.2 %; Immature Granulocytes Absolute 0.12 #; Lymphocytes # 0.9 10*3/uL (1.4-4.0); Lymphocytes % 8.2 % (21.2-54.2); Mean Corpuscular HGB Conc 31.3 GM/DL (32-36); Mean Corpuscular Hemoglobin 29 PG (27-34); Mean Corpuscular Volume 93.3 FL (87-102); Mean Platelet Volume 14.2 FL (9.6-12.0); Monocytes # 0.6 10*3/uL (0.11-0.8); Monocytes % 5.4 % (1.7-12.7); Neutrophils # 8.4 10*3/uL (1.4-7.4); Neutrophils % 80.9 % (38.7-73.9); Platelet Count 91 T/CUMM (130-400); Red Blood Count 2.67 MC/CUMM (3.8-5.5); Red Cell Distribution Width 16.4 % (9.3-17.3); White Blood Count 10.3 T/CUMM (4-12)
[2018-05-28] MEDS: MEROPENEM 1,000 MG in SODIUM CHLORIDE 0.9% 100 ML IV SCH ×2 (05:00→14:29)
[2018-05-28 05:22] LABS: Giant Platelets Few
[2018-05-28 05:23] LABS: Platelet Estimate Decreased
[2018-05-28] MEDS: ALBUMIN 25% 25 GM in PREMIX 1 EACH IV SCH ×3 (05:30→20:23)
[2018-05-28 05:31] LABS: Calcium 8.1 MG/DL (8.5-10.1); Osmolality,Calculated 315.6 MOS/KG (273-304); Potassium 4.2 MMOL/L (3.5-5.1)
[2018-05-28] MEDS: ASCORBIC ACID 500 MG TABLET PO SCH ×2 (08:31→20:30)
[2018-05-28] MEDS: DOCUSATE SODIUM 100 MG CAPSULE PO SCH ×2 (08:32→20:30)
[2018-05-28] MEDS: FAMOTIDINE 20 MG/2 ML VIAL IV SCH (08:32)
[2018-05-28] MEDS: INSULIN GLARGINE 100 UNIT/ML SUBCUT SCH (08:32)
[2018-05-28] MEDS ORDERED: SODIUM CHLORIDE 0.9% 1,000 ML IV PRN (08:36)
[2018-05-28] MEDS ORDERED: DILTIAZEM 30 MG TABLET PO SCH (09:00)
[2018-05-28 09:17] LABS: Albumin 3.1 G/DL (3.4-5.0); Bilirubin,Direct 1.51 MG/DL (0.0-0.20); Bilirubin,Indirect 0.8 MG/DL (0.0-1.0); Bilirubin,Total 2.3 MG/DL (0.2-1.0); Total Protein 5.6 G/DL (6.4-8.3)
[2018-05-28] MEDS ORDERED: methylPREDNISolone SOD SUC 40 MG/1 ML VIAL IV SCH (09:30)
[2018-05-28] MEDS: ACETAMINOPHEN 325 MG TABLET PO PRN (09:54)
[2018-05-28] MEDS: methylPREDNISolone SOD SUC 40 MG/1 ML VIAL IV SCH ×2 (09:55→20:31)
[2018-05-28] MEDS: cefTRIAXone 2,000 MG in SYRINGE 1 EACH IV SCH (14:53)
[2018-05-28] MEDS: VANCOMYCIN INJ 1,750 MG in SODIUM CHLORIDE 0.9% 500 ML IV SCH (14:59)
[2018-05-28] MEDS: FUROSEMIDE 40 MG/4 ML VIAL IV SCH (16:15)
[2018-05-28] MEDS: ASPIRIN CHEW 81 MG TABLET PO SCH (18:28)
[2018-05-29] MEDS: INSULIN REGULAR 100 UNIT/ML SUBCUT SCH ×5 (00:03→23:30)
[2018-05-29] MEDS: ALBUTEROL/IPRATROPIUM 3 ML NEB RESP TX SCH ×4 (02:01→19:18)
[2018-05-29 03:24] LABS: Basophils % 0.2 % (0.0-0.8); Hemoglobin 9.5 GM/DL (14.0-18.0); Immature Granulocytes % 1.1 %; Immature Granulocytes Absolute 0.07 #; Lymphocytes # 0.5 10*3/uL (1.4-4.0); Lymphocytes % 7.5 % (21.2-54.2); Mean Corpuscular HGB Conc 30.6 GM/DL (32-36); Mean Corpuscular Hemoglobin 28 PG (27-34); Mean Corpuscular Volume 91.2 FL (87-102); Mean Platelet Volume 14.5 FL (9.6-12.0); Monocytes # 0.2 10*3/uL (0.11-0.8); Monocytes % 3.1 % (1.7-12.7); Neutrophils # 5.4 10*3/uL (1.4-7.4); Neutrophils % 88.1 % (38.7-73.9); Platelet Count 108 T/CUMM (130-400); Red Cell Distribution Width 15.9 % (9.3-17.3); White Blood Count 6.1 T/CUMM (4-12)
[2018-05-29 03:38] LABS: Calcium 8.8 MG/DL (8.5-10.1); Osmolality,Calculated 318.4 MOS/KG (273-304); Potassium 4.9 MMOL/L (3.5-5.1)
[2018-05-29 03:59] LABS: Hypochromasia 1+; Platelet Estimate Normal; Target Cells Few
[2018-05-29 04:00] LABS: Ovalocytes 1+
[2018-05-29 04:20] LABS: ABG Base Excess -3.3 MMOL/L (-2.5-2.5); ABG HCO3 21.6 MMOL/L (20-26); ABG PCO2 38.1 MM HG (35-48); ABG PH 7.371 (7.35-7.45); ABG PO2 125.5 MM HG (80-95); ABG TCO2 22.8 MMOL/L (23-27)
[2018-05-29] MEDS: ALBUMIN 25% 25 GM in PREMIX 1 EACH IV SCH ×3 (05:29→20:36)
[2018-05-29] MEDS: PROPOFOL 1,000 MG/100 ML BOTTLE IV SCH ×5 (06:35→22:32)
[2018-05-29] MEDS: DOCUSATE SODIUM 100 MG CAPSULE PO SCH ×2 (08:29→20:36)
[2018-05-29] MEDS: ASCORBIC ACID 500 MG TABLET PO SCH ×2 (08:29→20:36)
[2018-05-29] MEDS: FUROSEMIDE 40 MG/4 ML VIAL IV SCH ×2 (08:30→15:19)
[2018-05-29] MEDS: methylPREDNISolone SOD SUC 40 MG/1 ML VIAL IV SCH ×2 (08:35→20:35)
[2018-05-29] MEDS: FAMOTIDINE 20 MG/2 ML VIAL IV SCH (08:38)
[2018-05-29] MEDS: INSULIN GLARGINE 100 UNIT/ML SUBCUT SCH (08:42)
[2018-05-29] MEDS: VANCOMYCIN INJ 1,750 MG in SODIUM CHLORIDE 0.9% 500 ML IV SCH (08:48)
[2018-05-29] MEDS: cefTRIAXone 2,000 MG in SYRINGE 1 EACH IV SCH (14:42)
[2018-05-29] MEDS: ASPIRIN CHEW 81 MG TABLET PO SCH (18:12)
[2018-05-29] MEDS: PHENYLEPHRINE DRIP 40 MG/250 ML PREMIX IV PRN (21:58)
[2018-05-29] MEDS ORDERED: DILTIAZEM 50 MG/10 ML VIAL IV ONE (22:00)
[2018-05-29] MEDS: DILTIAZEM INJ 100 MG in SODIUM CHLORIDE 0.9% 100 ML IV SCH (22:07)
[2018-05-30] MEDS: ALBUTEROL/IPRATROPIUM 3 ML NEB RESP TX SCH ×2 (00:21→07:20)
[2018-05-30] MEDS: PROPOFOL 1,000 MG/100 ML BOTTLE IV SCH (03:21)
[2018-05-30] MEDS: VANCOMYCIN INJ 1,750 MG in SODIUM CHLORIDE 0.9% 500 ML IV SCH (04:06)
[2018-05-30 04:09] LABS: ABG Base Excess -3.2 MMOL/L (-2.5-2.5); ABG HCO3 21.7 MMOL/L (20-26); ABG Oxygen Saturation 98.2 % (95-100); ABG PCO2 40.9 MM HG (35-48); ABG PH 7.343 (7.35-7.45); ABG TCO2 21.1 MMOL/L (23-27)
[2018-05-30] MEDS: ALBUMIN 25% 25 GM in PREMIX 1 EACH IV SCH (05:11)
[2018-05-30] MEDS: INSULIN REGULAR 100 UNIT/ML SUBCUT SCH (05:19)
[2018-05-30 08:34] LABS: Calcium 8.2 MG/DL (8.5-10.1); Osmolality,Calculated 345.9 MOS/KG (273-304); Potassium 5.1 MMOL/L (3.5-5.1)
[2018-05-30 08:36] LABS: Basophils % 0.2 % (0.0-0.8); Eosinophils % 0.1 % (0.00-10.9); Hematocrit 21.5 VOL% (42.0-52.0); Immature Granulocytes % 1.2 %; Immature Granulocytes Absolute 0.14 #; Lymphocytes # 1.3 10*3/uL (1.4-4.0); Lymphocytes % 10.9 % (21.2-54.2); Mean Corpuscular HGB Conc 30.2 GM/DL (32-36); Mean Corpuscular Hemoglobin 29 PG (27-34); Mean Corpuscular Volume 94.7 FL (87-102); Mean Platelet Volume 13.8 FL (9.6-12.0); Monocytes % 8.4 % (1.7-12.7); Neutrophils # 9.3 10*3/uL (1.4-7.4); Neutrophils % 79.2 % (38.7-73.9); Red Cell Distribution Width 16.2 % (9.3-17.3)
[2018-05-30 08:39] LABS: Red Blood Count 2.27 MC/CUMM (3.8-5.5); White Blood Count 11.7 T/CUMM (4-12)
[2018-05-30 08:40] LABS: Hemoglobin 6.5 GM/DL (14.0-18.0); Platelet Count 176 T/CUMM (130-400)
[2018-05-30] MEDS ORDERED: MORPHINE 4 MG/1 ML VIAL IV PRN (08:53)
[2018-05-30] MEDS: FUROSEMIDE 40 MG/4 ML VIAL IV SCH (09:01)
[2018-05-30] MEDS: FAMOTIDINE 20 MG/2 ML VIAL IV SCH (09:02)
[2018-05-30] MEDS ORDERED: MORPHINE PCA 30 MG/30 ML SYRINGE IV SCH ×2 (09:03→12:23)
[2018-05-30 09:58] VITALS: BP 131/60
[2018-05-30] MEDS: INSULIN GLARGINE 100 UNIT/ML SUBCUT SCH (10:08)
[2018-05-30] MEDS: DOCUSATE SODIUM 100 MG CAPSULE PO SCH (10:08)
[2018-05-30] MEDS: methylPREDNISolone SOD SUC 40 MG/1 ML VIAL IV SCH (10:09)
[2018-05-30] MEDS: ASCORBIC ACID 500 MG TABLET PO SCH (10:09)
[2018-05-30] MEDS: MORPHINE 4 MG/1 ML VIAL IV SCH ×2 (10:44→11:43)
[2018-05-30] MEDS ORDERED: MORPHINE 4 MG/1 ML VIAL IV ONE (12:30)
[2018-05-30] MEDS ORDERED: MORPHINE 4 MG/1 ML VIAL ONE (12:33)
[2018-05-31] MEDS ORDERED: VANCOMYCIN INJ 1,750 MG in SODIUM CHLORIDE 0.9% 500 ML IV SCH (09:00)
== END 2018-05-30 16:48 | disposition expired | DRG 870 ==
LOC: EDBD → EDUNIT# → N.ED 16:15 → N.EDINP 17:02 → N.3E 17:56 → N.CC 05-18 14:55 → N.ICU 05-25 16:55
PROVIDERS: ADMIT Internal Medicine; ATTEND Internal Medicine
PROC: ERCPWSP (ICD-10-PCS; 2018-05-18 11:05)